=== PATIENT | female | born 1955 | race Caucasian/White ===

== ENCOUNTER → 2020-05-28 | Emergency (ER) | payer MEDICARE ==
[~2020-05-28] VITALS: Ht 157.5 cm; Wt 72.7 kg
[~2020-05-28] MED LIST: HYDR-3165 PO; HYDROcodone/APAP 5/325MG 1 TAB TABLET PO ONE
--- NOTE | 2020-05-28 07:55 | PHYS DOC ---
General Adult EDM: Chief Complaint: WRIST PAIN HPI: HPI: 65-year-old female presents with right wrist pain. The patient was getting out of bed today and she fell onto her outstretched right arm. She had immediate pain after hitting the ground. She thinks it looks a little out of place. She iced it and took ibuprofen prior to arrival. The pain is tolerable at this time. She denies any other injuries. She is able to move her fingers, but moving at the wrist is painful. She has no other complaints at this time. Review of Systems: Review of Systems: Constitutional: Denies fever or chills Eyes: Denies change in visual acuity HENT: Denies nasal congestion or sore throat Respiratory: Denies cough or shortness of breath Cardiovascular: Denies chest pain or edema GI: Denies abdominal pain, nausea, vomiting, bloody stools or diarrhea : Denies dysuria Musculoskeletal: Right wrist pain Integument: Denies rash Neurologic: Denies headache, focal weakness or sensory changes Endocrine: Denies polyuria or polydipsia Lymphatic: Denies swollen glands Psychiatric: Denies depression or anxiety Heart Score: Risk Factors: Risk Factors: DM, Current or recent (<one month) smoker, HTN, HLP, family history of CAD, obesity. Risk Scores: Score 0 - 3: 2.5% MACE over next 6 weeks - Discharge Home Score 4 - 6: 20.3% MACE over next 6 weeks - Admit for Clinical Observation Score 7 - 10: 72.7% MACE over next 6 weeks - Early Invasive Strategies Allergies: Allergies: Allergies Coded Allergies Type Severity Reaction Last Updated Verified No Known Drug Allergies 05/28/20 No Physical Exam: PE: Constitutional: Well developed, well nourished, no acute distress, non-toxic appearance. [] HENT: Normocephalic, atraumatic, bilateral external ears normal, oropharynx moist, no oral exudates, nose normal. [] Eyes: PERRLA, EOMI, conjunctiva normal, no discharge. [] Neck: Normal range of motion, no tenderness, supple, no stridor. [] Cardiovascular:Heart rate regular rhythm, no murmur [] Lungs & Thorax: Bilateral breath sounds clear to auscultation [] Abdomen: Bowel sounds normal, soft, no tenderness, no masses, no pulsatile masses. [] Skin: Warm, dry, no erythema, no rash. [] Back: No tenderness, no CVA tenderness. [] Extremities: Pain with palpation of the right wrist, limited range of motion due to pain, obvious deformity. [] Neurologic: Alert and oriented X 3, normal motor function, normal sensory function, no focal deficits noted. [] Psychologic: Affect normal, judgement normal, mood normal. [] EKG: EKG: [] Radiology/Procedures: Radiology/Procedures: [] Impressions: Right wrist 3 views obtained 05/28/2020 because of wrist pain after fall COMPARISON: None FINDINGS: [place] volar angulated and mildly impacted acute intra-articular fracture of the distal right radial metaphysis and epiphysis with minimal dorsal displacement of posterior bone fragments. No dislocation. There is associated soft tissue swelling swan-neck deformity to the right wrist. No radiopaque foreign body or abnormal soft tissue gas. IMPRESSION: Acute impacted apex volar angulated distal right radial fracture with associated soft tissue swelling and deformity. Electronically signed by: Saskia Vang MD (05/28/2020 8:18 AM) [id number] DICTATED AND SIGNED BY: SASKIA VANG MD DATE: 05/28/20817 CC: MOE MOON DO; PCP,NO ~ Course & Med Decision Making: Course & Med Decision Making Pertinent Labs and Imaging studies reviewed. (See chart for details) The patient does have a fracture of the distal radius which includes the joint. It is mildly displaced dorsally. We will place her in a sugar tong splint. While placing the splint, we attempted reduction of the radius and had good movement with good alignment. This may or may not stay due to the type of fracture. I have made the patient aware that she does need to follow-up with orthopedics and at least have a consultation to see if she needs a cast or surgery. She is from out of town but I will provide her local orthopedic surgeon. I will discharge her with [place] 5/325 her pain. She is stable for discharge at this time. [] Dragon Disclaimer: Bessie Disclaimer: This electronic medical record was generated, in whole or in part, using a voice recognition dictation system. Departure Departure: Impression: Primary Impression: Radius distal fracture Qualified Codes: S52.531A - Colles' fracture of right radius, initial encounter for closed fracture Disposition: HOME/RESIDENCE PRIOR TO ADM Condition: STABLE Referrals: PCP,NO (PCP) Patient Instructions: Radial Fracture Additional Instructions: You can call the [facility] orthopedic group at [phone] for a follow-up appointment to discuss casting or surgery for your fracture. Scripts Hydrocodone Bit/Acetaminophen (NORCO 5-325 TABLET) 1 Each Tablet 1 TAB PO PRN Q6HRS PRN for PAIN, #14 TAB 0 Refills Prov: MOE MOON DO 05/28/20 Justification of Admission: Justification of Admission: Justification of Admission Dx: N/A MOE MOON DO May 28, 2020 07:55
--- NOTE | 2020-05-28 08:21 | RAD ---
Right wrist 3 views obtained 05/28/2020 because of wrist pain after fall COMPARISON: None FINDINGS: [place] volar angulated and mildly impacted acute intra-articular fracture of the distal right radial metaphysis and epiphysis with minimal dorsal displacement of posterior bone fragments. No dislocation. There is associated soft tissue swelling swan-neck deformity to the right wrist. No radiopaque foreign body or abnormal soft tissue gas. IMPRESSION: Acute impacted apex volar angulated distal right radial fracture with associated soft tissue swelling and deformity. Electronically signed by: Yani Vang MD (05/28/2020 8:18 AM) [id number]
== END ==
LOC: EDBD 07:30 → ER 07:30
DX: S52.531A Colles' fracture of right radius, initial encounter for closed fracture (principal); W18.39XA Other fall on same level, initial encounter; Y93.89 Activity, other specified; Y92.89 Other specified places as the place of occurrence of the external cause; Y99.8 Other external cause status
CPT/HCPCS: 25605; 73110; 99284

== ENCOUNTER → 2020-09-18 | Outpatient (CLI) | payer MEDICARE ==
[~2020-09-18] MED LIST changes: -HYDROcodone/APAP 5/325MG 1 TAB TABLET PO ONE
--- NOTE | 2020-09-18 12:15 | RAD ---
Right wrist 3 views INDICATION: Follow-up fracture wrist COMPARISON: 05/20/2020 FINDINGS: Residual deformity of the distal radius is present with interval callus formation and partial fusion of the previously evident impacted apex volar angulated distal radial fracture. The swan-neck deformi ty of the wrist are evident previously has been corrected, as well as the apex volar angulation. The soft tissue swelling has markedly decreased. Alignment is improved. IMPRESSION: Healing distal radial fracture with mild residual deformity but marked improvement in alignment. Electronically signed by: Yani Vang MD (09/18/2020 12:13 PM) [id number]
== END ==
LOC: DXRAD 08:22
PROVIDERS: ATTEND Physician Assistant
DX: S52.551D Other extraarticular fracture of lower end of right radius, subsequent encounter for closed fracture with routine healing (principal); X58.XXXD Exposure to other specified factors, subsequent encounter
CPT/HCPCS: 73110